=== PATIENT | female | born 1950 | race Caucasian/White ===

== ENCOUNTER 2017-05-20 06:33 | Day surgery (SDC) | payer BC, OTHER ==
[2017-05-20] MEDS ORDERED: Lactated Ringers 1,000 ML IV SCH (06:45)
[2017-05-20] MEDS ORDERED: Atropine 0.4 MG/ML SDV IVPUSH ONE (08:00)
[2017-05-20] MEDS ORDERED: Propofol 200 MG/20 ML SDV IV ONE (08:00)
[2017-05-20] MEDS ORDERED: Midazolam 1 MG/ML 2 ML SDV IV ONE (08:00)
--- NOTE | 2017-05-20 08:19 | PCM.OPNOTE ---
- General Post-Op/Procedure Note Date of Surgery/Procedure: 05/20/17 Operative Procedure(s): c scope Findings: normal exam Pre Op Diagnosis: colon cancer screening Post-Op Diagnosis: nl exam Anesthesia Technique: MAC Primary Surgeon: Tj Knox Anesthesia Provider: Kori Stout Pathology: none Complications: None Condition: Good Free Text/Narrative:: see dictation
--- NOTE | 2017-05-20 08:36 | OR ---
DATE OF OPERATION: 05/20/2017 SURGEON: Tj Knox MD PROCEDURE PERFORMED: Colonoscopy. PREOPERATIVE DIAGNOSIS: Need for screening C scope. POSTOPERATIVE DIAGNOSIS: Normal colon. INDICATIONS FOR PROCEDURE: This is a 66-year-old white female, who is referred for her first colonoscopy. She was offered and accepted same. DESCRIPTION OF OPERATION: After an excellent IV sedation was administered, digital rectal exam was performed. No marked abnormality was noted. The flexible colonoscope was inserted and advanced without difficulty to the cecum. The prep was excellent. The following findings were noted. Ascending colon, unremarkable. Transverse colon, unremarkable. Descending colon, unremarkable. Sigmoid and rectum, unremarkable. Colon was deflated as the scope was removed. The patient tolerated the procedure well and was taken to recovery room in good condition. RECOMMENDATIONS: Repeat colonoscopy in 10 years. /[id number] /MODL
[2017-05-20 09:01] VITALS: BP 122/61
== END 2017-05-20 09:20 | disposition home or self-care (01) ==
LOC: FB.SDS 06:33
PROVIDERS: ATTEND Surgery
DX: Z12.11 Encounter for screening for malignant neoplasm of colon (principal); I10 Essential (primary) hypertension; Z90.710 Acquired absence of both cervix and uterus; Z98.890 Other specified postprocedural states; Z79.899 Other long term (current) drug therapy; Z87.891 Personal history of nicotine dependence
CPT/HCPCS: 45378; J0461; J2250; J2704; J7120

== ENCOUNTER 2024-08-08 13:48 | Emergency (ER) | payer MEDICARE, OTHER ==
[2024-08-08 17:07] VITALS: BP 198/87; PULSE 71
== END 2024-08-08 17:00 | disposition home or self-care (01) ==
LOC: FB.ED 13:48
DX: S83.91XA Sprain of unspecified site of right knee, initial encounter (principal); E66.9 Obesity, unspecified; Z68.34 Body mass index [BMI] 34.0-34.9, adult; Z88.1 Allergy status to other antibiotic agents; Z79.899 Other long term (current) drug therapy; Z90.710 Acquired absence of both cervix and uterus; X50.9XXA Other and unspecified overexertion or strenuous movements or postures, initial encounter
CPT/HCPCS: 73700-RT; 99283